=== PATIENT | female | born 1985 | race African-American/Black ===

== ENCOUNTER 2021-03-27 12:56 | Emergency (ER) | payer MEDICAID ==
[~2021-03-27] VITALS: Ht 167.6 cm; Wt 60.0 kg
[2021-03-27 12:58] VITALS: BP 118/70
[2021-03-27] MEDS ORDERED: CITA20TA19 MT (13:12)
[2021-03-27] MEDS ORDERED: ARIP15TA2 MT (13:12)
[2021-03-27] MEDS ORDERED: CITALOPRAM HYDROBROMIDE 10MG TABLET PO ONE (13:15)
== END 2021-03-27 13:57 | disposition left against medical advice (07) ==
LOC: ER 12:56
DX: Z76.0 Encounter for issue of repeat prescription (principal); F32.A Depression, unspecified
CPT/HCPCS: 99283

== ENCOUNTER 2021-03-28 06:53 | Emergency (ER) | payer MEDICAID ==
[~2021-03-28] VITALS: Ht 162.6 cm; Wt 45.0 kg
[~2021-03-28 06:53] MED LIST: ARIP15TA2 MT; CITA20TA19 MT
[2021-03-28 06:58] VITALS: BP 125/99
== END 2021-03-28 08:00 | disposition home or self-care (01) ==
LOC: ER 06:53
DX: F20.9 Schizophrenia, unspecified (principal); Z59.00 Homelessness unspecified
CPT/HCPCS: 81025; 99283

== ENCOUNTER 2021-05-31 11:17 | Emergency (ER) | payer MEDICAID ==
[~2021-05-31] VITALS: Ht 157.5 cm; Wt 152.0 kg
[2021-05-31 12:38] LABS: BASOPHILS % 1.3 % (0.0-2.0); EOSINOPHILS % 3.9 % (0.0-5.0); HEMATOCRIT. 35.1 % (36.0-48.0); HEMOGLOBIN. 11.6 g/dL (12.0-16.0); LYMPHOCYTES % 44.4 % (20.0-50.0); MEAN CORPUSCULAR HEMOGLOBIN 28.6 pg (28.0-32.0); MEAN CORPUSCULAR VOLUME 86.7 fL (81.0-99.0); MONOCYTES % 8.2 % (2.0-8.0); NEUTROPHILS % 42.2 % (40.0-76.0); PLATELET 277 x1000/uL (130-400); RED BLOOD CELL COUNT 4.05 mill/uL (4.2-5.4); RED CELL DISTRIBUTION WIDTH 14.6 % (11.6-14.6)
[2021-05-31 12:44] LABS: CHLORIDE 108 mEq/L (98-107)
[2021-05-31 12:48] LABS: ETHANOL BLOOD < 10 mg/dL
[2021-05-31 12:53] LABS: BG BASE EXCESS -5.3 mmol/L (-2.0-2.0); BG CARBOXYHEMOGLOBIN 0.3 % (0.5-1.5); BG DEOXYHEMOGLOBIN 2.6 % (0.0-5.0); BG FRACTION INSPIRED OXYGEN 21; BG METHEMOGLOBIN 0.2 % (0.0-1.5); BG OXYGEN SATURATION 97.4 % (92.0-98.5); BG OXYHEMOGLOBIN 96.9 % (94.0-97.0); BG PCO2 32.7 mmHg (35.0-45.0); BG PH 7.381 (7.350-7.450); BG PO2 103.7 mmHg (75.0-100.0); BG SAMPLE SITE RIGHT BRACHIAL; BG VENT MODE ROOM AIR
[2021-05-31 13:39] LABS: CLARITY URINE CLEAR (CLEAR); COLOR URINE YELLOW (YELLOW); KETONES URINE NEGATIVE (NEGATIVE); LEUKOCYTE ESTERASE URINE TRACE (NEGATIVE); NITRITE URINE NEGATIVE (NEGATIVE); OCCULT BLOOD URINE NEGATIVE (NEGATIVE); PROTEIN URINE NEGATIVE (NEGATIVE); SPECIFIC GRAVITY URINE 1.019 (1.005-1.030); UROBILINOGEN URINE 0.2 E.U./dL (0.2-1.0)
[2021-05-31 13:58] LABS: METHADONE URINE SCREEN NEGATIVE (NEGATIVE)
[2021-05-31 13:59] LABS: CANNABINOID URINE SCREEN NEGATIVE (NEGATIVE)
[2021-05-31 14:00] LABS: *BARBITURATES SCREEN URINE NEGATIVE (NEGATIVE); PHENCYCLIDINE URINE SCREEN NEGATIVE (NEGATIVE)
[2021-05-31 14:01] LABS: *BENZODIAZEPINES SCREEN URINE NEGATIVE (NEGATIVE)
[2021-05-31 14:02] LABS: OPIATES URINE SCREEN NEGATIVE (NEGATIVE)
[2021-05-31 14:03] LABS: *AMPHETAMINES SCREEN URINE NEGATIVE (NEGATIVE); *COCAINE SCREEN URINE NEGATIVE (NEGATIVE)
[2021-06-01 11:30] VITALS: BP 112/64
== END 2021-06-01 13:17 | disposition home or self-care (01) ==
LOC: ER 11:17
DX: F31.30 Bipolar disorder, current episode depressed, mild or moderate severity, unspecified (principal); R45.851 Suicidal ideations; R45.86 Emotional lability; Z59.02 Unsheltered homelessness
CPT/HCPCS: 36415; 36600; 80053; 80305; 80307; 80320; 81003; 82375; 82805; 85025; 99285; G0480